=== PATIENT | female | born 1970 | race Hispanic/Latino ===

== ENCOUNTER 2021-05-22 13:37 | Emergency (ER) | payer OTHER ==
--- OUTSIDE RECORDS SUMMARY | 2021-05-22 13:41 | XMS REPORT | Continuity of Care Document ---
:1970 Author Organization [facility] t Address [address] [place] [address] Care Team Providers Name Role Phone Lab, Fam Pob I Attending Clinician Unavailable Payers Payer Name Policy Type Policy Number Effective Date Expiration Date S ource Problems This patient has no known problems. Allergies, Adverse Reactions, Alerts This patient has no known allergies or adverse reactions. Medications This patient has no known medications. Procedures This patient has no known procedures. Encounters Start End Encounter Admission Attending Care Care Encounter Source Date/Time Date/Time Type Type Clinicians Facility Department ID 2020-06-03 2020-06-03 Laboratory Lab, [facility] [id number] 08:15:11 08:35:11 Only Fam Pob I [facility] [id number] [place] [id number] [facility] [id number] [facility] [address] Results This patient has no known results.
[2021-05-22 15:06] LABS: Urine Blood Negative (Negative); Urine Glucose Trace (Negative); Urine Protein 1+ (Negative); Urine Specific Gravity >=1.030 (1.005-1.030)
[2021-05-22 15:13] LABS: Absolute Lymphocytes (CBC) 2.6 K/uL (0.7-4.9); Basophils % 0.3 % (0-1.3); Hematocrit 45.7 % (36.0-45.0); Lymphocytes % 18.5 % (15.3-44.8); MPV 8.5 fL (7.6-11.3); RBC Red Blood Cell Count 5.29 M/uL (3.86-4.86)
[2021-05-22 15:27] LABS: Potassium 3.6 mmol/L (3.5-5.1)
[2021-05-22] MEDS ORDERED: NA CHLORIDE 0.9% 1,000 ML ONE (15:31)
[2021-05-22] MEDS ORDERED: ONDANSETRON 4 MG/2 ML VIAL ONE (15:31)
--- NOTE | 2021-05-22 15:36 | RAD REPORT ---
EXAM DESCRIPTION: CT - CTFBWCON CLINICAL HISTORY: FACIAL PAIN COMPARISON: HEAD BRAIN W O CONTRAST dated 07/30/2011 TECHNIQUE: Axial 2 mm thick images of the face were obtained with sagittal and coronal reconstructio n images. All CT scans are performed using dose optimization technique as appropriate and may include automated exposure control or mA/KV adjustment according to patient size. FINDINGS: Enhancement and edema of the buccal mucosa and overlying soft tissues of the face on the r ight side.The source of infection is likely a right mandibular molar, either the second or third mola r. There is a small fluid collection along the mandible at this location measuring 8 millimeters in l ramonita axis. No parotid or submandibular lesions. No suspicious thyroid nodules. IMPRESSION: Small odontogenic abscess associated with a right mandibular molar, either the second or third, with overlying cellulitis.
[2021-05-22] MEDS ORDERED: CLINDAMYCIN 600MG/D5W 600 MG/50 ML BAG IV ONE (16:46)
--- NOTE | 2021-05-24 16:37 | EDPHYS ---
Physician Documentation [facility] Name: Angélica Thomas Age: 51 yrs Sex: Female : 1970 Arrival Date: 05/22/2021 Time: 13:40 Bed 17 Private MD: Zelalem Lebron ED Physician Jeff Leong HPI: 05/22 16:29 This 51 yrs old Female presents to ER via Ambulatory with complaints of Facial kb Swelling - jaw, Vomiting, Decreased Appetite. 16:29 The patient presents with pain, redness, swelling. The problem is located in the right kb jaw. Onset: The symptoms/episode began/occurred this morning. Duration: The symptoms are continuous. Modifying factors: The symptoms are alleviated by nothing, the symptoms are aggravated by nothing. Associated signs and symptoms: Pertinent positives: nausea, pain, swelling, vomiting, Pertinent negatives: anorexia, chills, dysphagia, fever, inability to eat, redness in area. Severity of symptoms: At their worst the symptoms were moderate, in the emergency department the symptoms are unchanged. The patient has not experienced similar symptoms in the past. The patient has not recently seen a physician. Patient reports she had a tooth abscess to right lower jaw area a few weeks ago took clindamycin and it seemed to clear up. Has follow-up appointment with dentist tomorrow but woke up this morning with swelling again to right lower jaw. Reports nausea and vomiting since last night unable to tolerate p.o. intake. Historical: - Allergies: 14:09 No Known Allergies; ss - Immunization history:: Adult Immunizations up to date. - Social history:: Smoking status: Patient denies any tobacco usage or history of. ROS: 16:27 Constitutional: Negative for fever, chills, and weight loss. kb 16:27 ENT: Positive for dental pain. 16:27 Abdomen/GI: Positive for nausea and vomiting, Negative for abdominal pain, diarrhea. 16:27 All other systems are negative. Exam: 16:27 Constitutional: This is a well developed, well nourished patient who is awake, alert, kb and in no acute distress. Head/Face: Normocephalic, atraumatic. Respiratory: Respirations even and unlabored. No increased work of breathing, no retractions or nasal flaring. Abdomen/GI: Soft, non-tender. No distention Skin: Warm, dry with normal turgor. Normal color. MS/ Extremity: Pulses equal, no cyanosis. Neurovascular intact. Full, normal range of motion. Neuro: Awake and alert, GCS 15, oriented to person, place, time, and situation. Moves all extremities. Normal gait. Psych: Awake, alert, with orientation to person, place and time. Behavior, mood, and affect are within normal limits. 16:27 ENT: Dental exam: pain, swelling to right lower jaw. Vital Signs: 14:08 Resp 16; Temp 98.3(O); Weight 68.04 kg; Height 5 ft. 0 in. (152.40 cm); Pain 8/10; ss 14:10 BP 157 / 96; Pulse 104; Pulse Ox 99% ; ss 15:30 BP 149 / 89; Pulse 80; Resp 16; Pulse Ox 100% ; bp 16:30 BP 157 / 91; Pulse 76; Resp 18; Temp 98.5; Pulse Ox 99% ; bp 14:08 Body Mass Index 29.29 (68.04 kg, 152.40 cm) ss MDM: 14:24 Patient medically screened. kb 16:12 Data reviewed: vital signs, nurses notes. Data interpreted: Pulse oximetry: on room air kb is 100 %. Interpretation: normal. Counseling: I had a detailed discussion with the patient and/or guardian regarding: the historical points, exam findings, and any diagnostic results supporting the discharge/admit diagnosis, lab results, radiology results, the need for outpatient follow up, a dentist, to return to the emergency department if symptoms worsen or persist or if there are any questions or concerns that arise at home. 16:26 ED course: Appointment with dentist tomorrow. kb 05/22 14:23 Order name: CBC with Diff; Complete Time: 15:21 kb 05/22 14:23 Order name: Basic Metabolic Panel; Complete Time: 15:28 kb 05/22 15:06 Order name: Urine Dipstick-Ancillary; Complete Time: 15:12 EDNJ 05/22 15:15 Order name: Urine --Ancillary (enter results) eb 05/22 15:15 Order name: Urine --Ancillary EDNJ 05/22 15:18 Order name: Glucose, Ancillary Testing; Complete Time: 15:21 EDNJ 05/22 14:23 Order name: IV Start; Complete Time: 14:55 kb 05/22 14:32 Order name: CT Facial Bones W/ Con \T\ Mpr; Complete Time: 15:53 kb 05/22 14:32 Order name: Blood Glucose Level; Complete Time: 15:53 kb 05/22 15:54 Order name: PO challenge; Complete Time: 16:21 kb Administered Medications: 14:45 Drug: Zofran (Ondansetron) 4 mg Route: IVP; Site: right antecubital; bp 16:21 Follow up: Response: No adverse reaction bp 15:12 Drug: NS 0.9% 1000 ml Route: IV; Rate: 1000 ml; Site: right antecubital; bp 16:58 Follow up: IV Status: Completed infusion; IV Intake: 1000ml bp 16:15 CANCELLED (Other Intervention Used): Augmentin (Amoxicillin-Clavulanate) 875 mg PO once kb 16:30 Drug: Clindamycin 600 mg Route: IVPB; Infused Over: 30 mins; Site: right antecubital; bp 16:58 Follow up: IV Status: Completed infusion; IV Intake: 50ml bp Disposition: 17:14 Co-signature as Attending Physician, Jeff Leong MD. ma2 Disposition Summary: 05/22/21 16:15 Discharge Ordered Location: Home kb Condition: Stable kb Diagnosis - Periapical abscess without sinus kb Followup: kb - With: Private Physician - When: 2 - 3 days - Reason: Recheck today's complaints, Continuance of care, Re-evaluation by your physician Followup: kb - With: Emergency Department - When: As needed - Reason: Worsening of condition Discharge Instructions: - Discharge Summary Sheet kb - Dental Pain, [id number]-[id number] kb - Dental Abscess, [id number] kb Forms: - Medication Reconciliation Form kb - Thank You Letter kb - Antibiotic Education kb - Prescription Opioid Use kb - Work release form bp Prescriptions: - Clindamycin HCl 300 mg Oral Capsule - take 1 capsule by ORAL route every 6 hours for 10 days; 40 capsule; Refills: 0, kb Product Selection Permitted - Ibuprofen 600 mg Oral Tablet - take 1 tablet by ORAL route every 6 hours As needed take with food; 30 tablet; kb Refills: 0, Product Selection Permitted Signatures: Dispatcher [employer] Elvia Jones, ROE-C Chanda Palafox RN RN ss Harrison Mcclure RN RN bp Jeff Leong MD MD ma2 Corrections: (The following items were deleted from the chart) 16:15 15:54 Augmentin (Amoxicillin-Clavulanate) 875 mg PO once ordered. kb kb 16:29 16:27 ENT: Dental exam: cellulitis, pain, kb kb
--- NOTE | 2021-05-24 16:37 | ER ---
Nurse's Notes [facility] Name: Angélica Thomas Age: 51 yrs Sex: Female : 1970 Arrival Date: 05/22/2021 Time: 13:40 Bed 17 Private MD: Zelalem Lebron Diagnosis: Periapical abscess without sinus Presentation: 05/22 14:08 Chief complaint: Patient states: Swelling to R lower jaw that began over night. Pt also ss reports N/V. Coronavirus screen: Client denies travel out of the [place] in the last 14 days. Ebola Screen: Patient denies exposure to infectious person. Patient denies travel to an Ebola-affected area in the 21 days before illness onset. Initial Sepsis Screen: Does the patient meet any 2 criteria? No. Patient's initial sepsis screen is negative. Does the patient have a suspected source of infection? No. Patient's initial sepsis screen is negative. Risk Assessment: Do you want to hurt yourself or someone else? Patient reports no desire to harm self or others. Onset of symptoms was May 22, 2021. 14:08 Method Of Arrival: Ambulatory ss 14:08 Acuity: DOUGLAS 3 ss Triage Assessment: 14:10 General: Appears distressed, uncomfortable, Behavior is cooperative, appropriate for bp age, anxious. Pain: Complains of pain in face. EENT: MANDIBULAR INFLAMMATION NOTED. Neuro: No deficits noted. Cardiovascular: No deficits noted. Respiratory: No deficits noted. GI: Reports nausea, vomiting. : No signs and/or symptoms were reported regarding the genitourinary system. Derm: No deficits noted. Musculoskeletal: No deficits noted. Historical: - Allergies: 14:09 No Known Allergies; ss - Immunization history:: Adult Immunizations up to date. - Social history:: Smoking status: Patient denies any tobacco usage or history of. Screenin:30 Abuse screen: Denies threats or abuse. Denies injuries from another. Nutritional bp screening: No deficits noted. Tuberculosis screening: No symptoms or risk factors identified. Fall Risk None identified. Assessment: 15:30 Reassessment: PT RETURNED FROM [facility]. bp 16:58 Reassessment: PT D/C HOME AMBULATORY WITH FAMILY, DX WITH DENTAL ABSCESS. bp Vital Signs: 14:08 Resp 16; Temp 98.3(O); Weight 68.04 kg; Height 5 ft. 0 in. (152.40 cm); Pain 8/10; ss 14:10 BP 157 / 96; Pulse 104; Pulse Ox 99% ; ss 15:30 BP 149 / 89; Pulse 80; Resp 16; Pulse Ox 100% ; bp 16:30 BP 157 / 91; Pulse 76; Resp 18; Temp 98.5; Pulse Ox 99% ; bp 14:08 Body Mass Index 29.29 (68.04 kg, 152.40 cm) ED Course: 13:40 Patient arrived in ED. am2 13:41 Zelalem Lebron MD is Private Physician. am2 14:09 Triage completed. ss 14:09 Arm band placed on right wrist. ss 14:23 Elvia Torrez FNP-C is [facility]. kb 14:23 Jeff Leong MD is Attending Physician. kb 14:27 Harrison Mcclure, CLOVER is Primary Nurse. bp 14:57 Inserted saline lock: 20 gauge in right antecubital area, using aseptic technique. bp Blood collected. 15:17 CT Facial Bones W/ Con \T\ Mpr In Process Unspecified. EDMS 15:38 Urine --Ancillary (enter results) Sent. mh5 15:38 Urine --Ancillary Sent. mh5 16:30 Patient has correct armband on for positive identification. Bed in low position. Call bp light in reach. Side rails up X2. Adult w/ patient. 16:58 No provider procedures requiring assistance completed. IV discontinued, intact, bp bleeding controlled, No redness/swelling at site. Pressure dressing applied. Administered Medications: 14:45 Drug: Zofran (Ondansetron) 4 mg Route: IVP; Site: right antecubital; bp 16:21 Follow up: Response: No adverse reaction bp 15:12 Drug: NS 0.9% 1000 ml Route: IV; Rate: 1000 ml; Site: right antecubital; bp 16:58 Follow up: IV Status: Completed infusion; IV Intake: 1000ml bp 16:15 CANCELLED (Other Intervention Used): Augmentin (Amoxicillin-Clavulanate) 875 mg PO once kb 16:30 Drug: Clindamycin 600 mg Route: IVPB; Infused Over: 30 mins; Site: right antecubital; bp 16:58 Follow up: IV Status: Completed infusion; IV Intake: 50ml bp Intake: 16:58 IV: 50ml; Total: 50ml. bp 16:58 IV: 1000ml; Total: 1050ml. bp Outcome: 16:15 Discharge ordered by . gustavo 16:30 Discharged to home ambulatory. bp 16:30 Condition: stable 16:30 Discharge instructions given to patient, Instructed on discharge instructions, follow up and referral plans. medication usage, Demonstrated understanding of instructions, follow-up care, medications, Prescriptions given X 2. 17:01 Patient left the ED. bp Signatures: Dispatcher [employer] EDMS Elvia Torrez, GRANITE POLISHER MACHINE-C GRANITE POLISHER MACHINE-Chanda Acosta, RN RN Cynthia Quinteros [facility] Shelly Galeana formerly [facility] Harrison Mcclure, RN RN bp
[2021-05-24 20:49] VITALS: BP 157/91; TEMP 98.5; O2SAT 99
== END 2021-05-22 17:01 | disposition home or self-care (01) ==
LOC: ER 13:37
DX: K04.7 Periapical abscess without sinus (principal)
CPT/HCPCS: 96365; 96361; 85025; 80048; 36415; 81025; 82565; 82947; 81003; 70487; 76377; 96375; 99284; Q9967; J7030; J2405

== ENCOUNTER 2023-09-25 15:27 | Observation (INO) | payer OTHER ==
--- OUTSIDE RECORDS SUMMARY | 2023-09-25 15:30 | XMS REPORT | Continuity of Care Document ---
:1970 Author Organization [facility] t Address [address] [place] [address] [place] [id number] Care Team Providers Name Role Phone JASPAL ELDER Attending Clinician Unavailable Referred, Self Attending Clinician Unavailable Alley Luna Attending Clinician Unavailable Lab, Adc Fam Pob I Attending Clinician Unavailable Venecia Alvarenga Attending Clinician VENECIA GONSALVES Attending Clinician Unavailable RENETTA GASTELUM Admitting Clinician Unavailable Alley Luna Admitting Clinician Unavailable Payers Payer Name Policy Type Policy Number Effective Date Expiration Date [place] [address] [id number] 2023 00:00:00 [facility] [id number] 2018 00:00:00 Problems Condition Condition Condition Status Onset Resolution Last Treating Co mments Source Name Details Category Date Date Treatment Clinician Date Diabetes Diabetes Disease Active Kelse y 05-25 Seybold 00:00: - 00 Externa l Hypertensi Hypertensi Disease Active K elsey on on 05-25 Seybold 00:00: - 00 Externa l Thyroid Thyroid Disease Active Aileen disease disease 05-25 Seybold 00:00: - 00 Externa l Obesity Obesity Disease Active Aileen 05-25 Seybold 00:00: - 00 Externa l Hypothyroi Hypothyroi Disease Active K elseannia dism dism 05-25 Seybold (acquired) (acquired) 00:00: - 00 Externa l History of History of Disease Active K elsey retinal retinal 05-25 Seybold detachment detachment 00:00: - 00 Externa l Allergies, Adverse Reactions, Alerts Allergy Allergy Status Severity Reaction(s) Onset Inactive Treating Comm ents Source Name Type Date Date Clinician NO KNOWN Drug Active Univers ALLERGIE Class ity of [facility] Social History Social Habit Start Date Stop Date Quantity Comments Source Gender identity Aileen ybold - External Sexual orientation Aileen Sandraybold - External Exposure to Not sure University SARS-CoV-2 (event) [facility] Alcohol intake 2023-05-25 2023-05-25 Current drinker Alfonzose annia Ritterold - 00:00:00 00:00:00 of alcohol External (finding) Education 2023-05-25 2023-05-25 13 Aileen ybold - 00:00:00 00:00:00 External Alcohol Comment 2023-05-25 2023-05-25 rarely Aileen ybold - 00:00:00 00:00:00 External Tobacco use and 2023-05-23 2023-05-23 Smokeless Aileen Se ybold - exposure 00:00:00 00:00:00 tobacco non-user External History of Social 2023-05-23 2023-05-23 Aileen ybold - function 00:00:00 00:00:00 External Sex [birth year] Aileen ybold - 00:00:00 00:00:00 External Smoking Status Start Date Stop Date Source Unknown if ever smoked Universit y [facility] Never smoked tobacco Aileen Seyb old - External Medications Ordered Filled Start Stop Current Ordering Indication Dosage Frequency Signature Comments Components Source Medication Medication Date Date Medication? Clinician (SIG) Name Name Semaglutide 2022- 1mg Inject 1 K elsey (1 mg/dose) 05-25 mg into Seyb old 2 mg/1.5 mL 13:52: 00:00 the skin - SQ Solution 00 :00 once a Insurance Operations Rep a Pen-Injecto week l r OZEMPIC (0 Yes [id number] 1mg Inject 1 Aileen mg/dose) 4 7-28 mg into Seybol d mg/3 mL SQ 00:00: the skin - Solution 00 once a Externa Pen-Injecto week l r Lisinopril Yes 20mg Take 1 Kelse y 20 MG oral 7-26 tablet (20 Sey bold Tablet 11:07: mg total) - 27 by mouth Externa daily l Levothyroxi Yes 112ug Take 1 Alfonzo sey ne Sodium 7-26 tablet Seybold 112 MCG 11:07: (112 mcg - oral Tablet 16 total) by Ext casimiro mouth l daily Amlodipine Yes 10mg Take 1 Kelse y Besylate 10 7-26 tablet (10 Se ybold MG oral 11:07: mg total) - Tablet 03 by mouth Externa daily l Vital Signs Vital Name Observation Time Observation Value Comments Source Systolic blood 2023-05-25 18:42:00 120 mm[Hg] Aileen Ritterold - pressure External Diastolic blood 2023-05-25 18:42:00 78 mm[Hg] Katy milner Seybold - pressure External Heart rate 2023-05-25 18:42:00 80 /min Aileen bronson - External Body temperature 2023-05-25 18:42:00 37.06 Kristina Meri Christensen - External Respiratory rate 2023-05-25 18:42:00 15 /min Meri Christensen - External Body height 2023-05-25 18:42:00 152.4 cm Aileen bronson - External Body weight 2023-05-25 18:42:00 72.122 kg Aileen bronson - External BMI 2023-05-25 18:42:00 31.05 kg/m2 Aileen bronson - External Oxygen saturation in 2023-05-25 18:42:00 98 /min Aileen Christensen - Arterial blood by External Pulse oximetry Procedures This patient has no known procedures. Encounters Start End Encounter Admission Attending Care Care Encounter Source Date/Time Date/Time Type Type Clinicians Facility Department ID 2023-09-25 2023-09-25 Outpatient AILEEN ELDER [id number] Aileen 15:30:00 15:30:00 JASPAL Seybol d 2023-09-25 2023-09-25 Outpatient PREZAS, AILEEN PORTILLO [id number] Aileen 00:00:00 00:00:00 JASPAL Seybol d 2023-05-25 2023-05-25 Outpatient PREZAColleen AILEEN PORTILLO [id number] Aileen 13:30:00 13:30:00 JASPAL Seybol d 2023-05-25 2023-05-25 Outpatient PREZAS, AILEEN PORTILLO [id number] Aileen 00:00:00 00:00:00 JASPAL Seybol d 2021-08-19 2021-08-19 Outpatient EL Referred, [facility] ABISAI [id number] [facility] 12:00:00 12:00:00 Self 04 [facility] [place] 2021-01-15 2021-01-15 Outpatient [facility] [id number] Univers 14:50:00 14:50:00 ity [facility] 2020-12-25 2020-12-25 Outpatient [facility] [id number] Univers 14:55:00 14:55:00 ity [facility] 2020-08-09 2020-08-09 Outpatient EL Holste, [facility] ABISAI [id number] [facility] 12:00:00 12:00:00 Alley [facility] 2020-06-03 2020-06-03 Laboratory Lab, [facility] [id number] 08:15:11 08:35:11 Only Fam Pob I Health [id number] [place] [id number] Professio [phone] [address] One 2020-06-03 2020-06-03 Laboratory Lab, [facility] Fam Pob I [facility] [id number] Univers 08:15:11 08:35:11 Only Venecia Gonsalves Health [id number] ity [facility] [id number] Ran as Professio [phone] Me dical [address] 2020-06-03 2020-06-03 Outpatient R ANA ROSA [facility] [id number] Univers 08:20:00 08:20:00 VENECIA [facility] Results This patient has no known results. History and Physical Notes Date/Time Note Provider Source 2023-05-25 13:48:43 [id number] of [facility] this note is different from the original.Chief Complaint ?Establish care ?History of Present Illness ?Bill Thomas is a(n) 53 year old female with a past medical history as documented below who presents today for evaluation of No chief complaint on file..Prior PCP:Dr. Lucero. Last seen for PCP has been years. DM: Seen Dr. Rodriguez with Endocrinology. Managed and monitor by Dr. Rodriguez. HTN: Stable with medication. Hypothyroidism: Stable with medication. Family history of ovarian cancer. Last [employer] appt: August 2022. [facility]. Seen yearly. COVID: 5 shots, UTDTDAP: NUTDPneumovax: UTDShingles: 1/2. Will get shot at pharmacy[facility] Management[facility] screen: UTDPAP: UTDMammogram: UTD??General: Alert, Conversant, cooperative, oriented x3.HEENT: Head atraumatic. Extraocular movements intact. Ears atraumatic. Nares patent. Oropharynx moist. Dentition appears normal. Neck: Supple. No thyromegaly.Heart: Regular rate and rhythm. No murmurs.Lungs: Clear to auscultation bilateral.Abdomen: Soft, nontender, nondistended. Extremities: Good range of motion to all extremities. No focal deficits.Skin: Normal skin turgor. Skin appears dry. No significant edema.Neuro: No focal deficits. Cranial nerves II-XII intact.Mental: Patient appears in good mood. Intact judgement and insight. Patient interactive and appropriate.?Labs/Radiology ?Done with Endocrinology. ?Assessment and Plan ?DM Type 2HTNHypothyroidismObesityDM: Medication updated. Monitored and managed by endocrinology-Dr. Lebron. We will obtain recent lab work and note. Recommend to decrease carbohydrate intake to less than 45 g per meal. Recommend to check blood sugars at least twice daily. Recommend to maintain blood sugars less than 140 fasting and less than 200 after meals. If blood sugar remains above 200 further adjustment in medication may be required.HTN: Medication reviewed and updated recommend to check blood pressure daily as needed. Recommend to maintain blood pressure less than 130/80. If blood pressure remains above 140/90 consistently, additional medication and/or further adjustment in medication may be required. Hold blood pressure medication if blood pressure systolic less than 110.Hypothyroidism: Monitored and managed by Dr. Lebron. Continue with medicationObesity: BMI 31. Continue diet lifestyle modification.Vaccine: Patient to receive DTaP vaccine. ?Questions answered. Instructions/handouts given. Risks and benefits of any prescription medicines, including any side effects, addressed in detail with the patient. Patient understands and agrees with plan of care. ?Follow-Up ?One year?[place] [id number] and physical [id number]:43:09History and physical [id number] for patient [facility] [facility] [id number]"
[2023-09-25] MEDS ORDERED: NA CHLORIDE 0.9% 2,000 ML ONE (16:02)
[2023-09-25] MEDS ORDERED: TENECTEPLASE 50 MG/10 ML VIAL IV ONE (16:02)
--- NOTE | 2023-09-25 16:02 | RAD REPORT ---
EXAM DESCRIPTION: CT - Ct Stroke Brain Wo Cont - 09/25/2023 3:55 pm CLINICAL HISTORY: STROKE ALERT Headache, drowsiness, CVA symptomology COMPARISON: <Comparisons> TECHNIQUE: All CT scans are performed using dose optimization technique as appropriate and may inclu de automated exposure control or mA/KV adjustment according to patient size. FINDINGS: No intracranial hemorrhage, hydrocephalus or extra-axial fluid collection.No areas of brai n edema or evidence of midline shift. The paranasal sinuses and mastoids are clear. The calvarium is intact. IMPRESSION: No acute intracranial abnormality. The findings were discussed with Dr. Cartagena in the ER On 09/25/2023 at 3:58 p.m. by telephone.
[2023-09-25] MEDS ORDERED: FOLIC ACID 5 MG/ML VIAL ONE (16:03)
[2023-09-25 16:13] LABS: Absolute Lymphocytes (CBC) 1.7 K/uL (0.7-4.9); Hematocrit 43.7 % (36.0-45.0); Lymphocytes % 33.8 % (15.3-44.8); MCV 88.9 fL (80-100); MPV 8.6 fL (7.6-11.3); Platelets 270 thou/uL (152-406); RBC Red Blood Cell Count 4.91 M/uL (3.86-4.86)
[2023-09-25 16:31] LABS: Potassium 3.5 mEq/L (3.5-5.1); Troponin High Sensitivity 4.8 pg/mL (<58.9)
--- NOTE | 2023-09-25 16:32 | RAD REPORT ---
EXAM DESCRIPTION: RAD - Chest Single View - 09/25/2023 4:23 pm CLINICAL HISTORY: stroke Chest pain. COMPARISON: <Comparisons> FINDINGS: Portable technique limits examination quality. The lungs are grossly clear. The heart is normal in size. No displaced fractures. IMPRESSION: No acute intrathoracic process suspected.
--- NOTE | 2023-09-25 16:37 | EDPHYS ---
Physician Documentation [facility] Name: Angélica Thomas Age: 53 yrs Sex: Female : 1970 Arrival Date: 09/25/2023 Time: 15:27 Bed 5 Private MD: WEN Physician Leo Cartagena HPI: 09/25 16:11 This 53 yrs old Female presents to ER via Wheelchair with complaints of S/S of sandy Possible Stroke. 16:11 The patient's problem is reported as a facial droop, on right, paresthesias, in right sandy side of face, dysphasia, slow speech, expressive aphasia, weakness, in the right upper extremity, in the right side of face. Onset: The symptoms/episode began/occurred 11 a,, matthias , maybe a few before or after. Duration: The episode is continuous. Context: the episode(s) was witnessed, by co-worker(s), symptoms became apparent at 11:00. The symptoms are alleviated by nothing. The symptoms are aggravated by nothing. Associated signs and symptoms: The patient has no apparent associated signs or symptoms. Patient's baseline: Neuro:. The patient has not experienced similar symptoms in the past. Historical: - Allergies: 15:39 Codeine; iw - PMHx: 15:39 diabetes mellitus; Hypertensive disorder; Hypothyroidism; iw - PSHx: 15:39 cyst removal from hand; Ligation of fallopian tube; iw - Immunization history:: Adult Immunizations unknown. - Family history:: not pertinent. - Social history:: Smoking status: Patient denies any tobacco usage or history of. ROS: 16:11 Constitutional: Negative for fever, chills, and weight loss, Eyes: Negative for injury, sandy pain, redness, and discharge, ENT: Negative for injury, pain, and discharge, Neck: Negative for injury, pain, and swelling, Cardiovascular: Negative for chest pain, palpitations, and edema, Respiratory: Negative for shortness of breath, cough, wheezing, and pleuritic chest pain, Abdomen/GI: Negative for abdominal pain, nausea, vomiting, diarrhea, and constipation, Back: Negative for injury and pain, : Negative for injury, bleeding, discharge, and swelling, MS/Extremity: Negative for injury and deformity, Skin: Negative for injury, rash, and discoloration, Psych: Negative for depression, anxiety, suicide ideation, homicidal ideation, and hallucinations, Allergy/Immunology: Negative for hives, rash, and allergies, Endocrine: Negative for neck swelling, polydipsia, polyuria, polyphagia, and marked weight changes, Hematologic/Lymphatic: Negative for swollen nodes, abnormal bleeding, and unusual bruising, 16:11 Neuro: Positive for numbness, weakness, of the face and right arm, Exam: 16:11 Constitutional: This is a well developed, well nourished patient who is awake, alert, sandy and in no acute distress. Head/Face: Normocephalic, atraumatic. Eyes: Pupils equal round and reactive to light, extra-ocular motions intact. Lids and lashes normal. Conjunctiva and sclera are non-icteric and not injected. Cornea within normal limits. Periorbital areas with no swelling, redness, or edema. ENT: Nares patent. No nasal discharge, no septal abnormalities noted. Tympanic membranes are normal and external auditory canals are clear. Oropharynx with no redness, swelling, or masses, exudates, or evidence of obstruction, uvula midline. Mucous membranes moist. Neck: Trachea midline, no thyromegaly or masses palpated, and no cervical lymphadenopathy. Supple, full range of motion without nuchal rigidity, or vertebral point tenderness. No Meningismus. Chest/axilla: Normal chest wall appearance and motion. Nontender with no deformity. No lesions are appreciated. Cardiovascular: Regular rate and rhythm with a normal S1 and S2. No gallops, murmurs, or rubs. Normal PMI, no JVD. No pulse deficits. Respiratory: Lungs have equal breath sounds bilaterally, clear to auscultation and percussion. No rales, rhonchi or wheezes noted. No increased work of breathing, no retractions or nasal flaring. Abdomen/GI: Soft, non-tender, with normal bowel sounds. No distension or tympany. No guarding or rebound. No evidence of tenderness throughout. Back: No spinal tenderness. No costovertebral tenderness. Full range of motion. Skin: Warm, dry with normal turgor. Normal color with no rashes, no lesions, and no evidence of cellulitis. MS/ Extremity: Pulses equal, no cyanosis. Neurovascular intact. Full, normal range of motion. Neuro: Awake and alert, GCS 15, oriented to person, place, time, and situation. Cranial nerves II-XII grossly intact. Motor strength 5/5 in all extremities. Sensory grossly intact. Cerebellar exam normal. Normal gait. Psych: Awake, alert, with orientation to person, place and time. Behavior, mood, and affect are within normal limits. 16:11 ECG was reviewed by the Attending Physician. 16:11 Neuro: Orientation: is normal, appropriate for stated age, no acute changes, Mentation: is normal, appropriate for stated age, no acute changes, Memory: is normal, appropriate for stated age, no acute changes, Cranial nerves: facial droop noted on right, with forehead spared. Motor: is normal, Sensation: is normal, no obvious gross deficits, Gait: not tested. 16:25 Radiologist reports: neg for acute sandy Vital Signs: 16:00 BP 178 / 107; iw 16:02 BP 159 / 93; Pulse 88; Resp 16; Temp 97.9(O); Pulse Ox 100% on R/A; Weight 68.49 kg; db 16:05 BP 179 / 94; Pulse 88; Resp 16; Pulse Ox 100% on R/A; db 16:06 BP 167 / 84; iw 16:18 BP 146 / 101; Pulse 86; Resp 18; Pulse Ox 100% on R/A; db 17:05 BP 167 / 100; Pulse 98; Resp 18; Pulse Ox 100% on R/A; db 17:15 BP 156 / 87; Pulse 87; Resp 18; Pulse Ox 100% on R/A; db 17:30 BP 115 / 102; Pulse 85; db 17:45 BP 137 / 94; Pulse 78; Resp 16; Pulse Ox 100% on R/A; db 18:00 BP 155 / 105; Pulse 78; Resp 16; Pulse Ox 99% on R/A; db 18:30 BP 163 / 92; Pulse 77; Resp 18; Pulse Ox 97% on R/A; db 19:00 BP 138 / 87; Pulse 81; Resp 18; Pulse Ox 98% ; vc1 20:00 BP 127 / 93; Pulse 73; Resp 18; Pulse Ox 98% ; vc1 21:00 BP 137 / 82; Pulse 78; Resp 19; Pulse Ox 98% ; vc1 22:00 BP 126 / 81; Pulse 76; Resp 13; Pulse Ox 97% ; vc1 23:00 BP 130 / 76; Pulse 75; Resp 14; Pulse Ox 96% ; vc1 23:45 BP 125 / 77; Pulse 74; Resp 12; Pulse Ox 97% ; vc1 NIH Stroke Scale Scores: 16:11 NIHSS Score: 4 sandy 16:15 NIHSS Score: 3 db MDM: 15:32 Patient medically screened. sandy 16:26 Differential diagnosis: CVA, TIA. Data reviewed: vital signs, nurses notes, lab test sandy result(s), EKG, radiologic studies, CT scan, MRI, plain films. Consideration of Admission/Observation Escalation of care including admission/observation considered. I considered the following discharge prescriptions or medication management in the emergency department Medications were administered in the Emergency Department. See MAR. Independent interpretation of the following test(s) in the Emergency Department EKG: See my EKG interpretation above. Historians other than the Patient: Family Member: friend and later well informed. ED course: dr edmonds , ct neg , window unclear, dw family, will tnk , pt and family understand and accept all risk. 09/25 15:33 Order name: Basic Metabolic Panel; Complete Time: 16:39 ms3 09/25 15:33 Order name: CBC with Diff; Complete Time: 16:39 ms3 09/25 15:33 Order name: High Sensitivity Troponin; Complete Time: 16:39 ms3 09/25 15:33 Order name: Protime (+inr); Complete Time: 17:53 ms3 09/25 15:33 Order name: Ptt, Activated; Complete Time: 17:53 ms3 09/25 15:42 Order name: Urinalysis w/ reflexes; Complete Time: 17:53 [facility] 09/25 16:00 Order name: Glucose, Ancillary Testing; Complete Time: 16:06 [facility] 09/25 17:56 Order name: Anti-Thrombin III Activity EDWA 09/25 17:56 Order name: C-ANCA Anti-Proteinase 3 EDWA 09/25 17:56 Order name: Cardiolipin Antibodies G,M EDWA 09/25 17:56 Order name: Factor V Leiden Mutation EDWA 09/25 17:56 Order name: Homocysteine EDWA 09/25 17:56 Order name: Miscellaneous Test Lab [facility] 09/25 17:56 Order name: P-ANCA Anti-Myeloperoxidase Ab [facility] 09/25 17:56 Order name: Protein C Antigen EDWA 09/25 17:56 Order name: Protein Electo w/M Freddie Serum EDMS 09/25 17:56 Order name: Protein S (Total EDMS 09/25 17:56 Order name: PROTHROMBIN GENE ANALYSIS (F2) EDMS 09/25 17:56 Order name: RPR EDMS 09/25 17:56 Order name: Vitamin B12 Level EDMS 09/25 17:56 Order name: Vitamin D, 25 (OH), TOTAL EDMS 09/25 17:56 Order name: Basic Metabolic Panel EDMS 09/25 17:56 Order name: Basic Metabolic Panel EDMS 09/25 17:56 Order name: Basic Metabolic Panel EDMS 09/25 17:56 Order name: Basic Metabolic Panel EDMS 09/25 17:56 Order name: Basic Metabolic Panel EDMS 09/25 17:56 Order name: Basic Metabolic Panel EDMS 09/25 17:56 Order name: C-Reactive Protein EDMS 09/25 17:56 Order name: C-Reactive Protein EDMS 09/25 17:56 Order name: CBC with Automated Diff EDMS 09/25 17:56 Order name: CBC with Automated Diff EDMS 09/25 17:56 Order name: CBC with Automated Diff EDMS 09/25 17:56 Order name: CBC with Automated Diff EDMS 09/25 17:56 Order name: CBC with Automated Diff EDMS 09/25 17:56 Order name: CBC with Automated Diff EDMS 09/25 17:56 Order name: Creatine Phosphokinase EDMS 09/25 17:56 Order name: Creatine Phosphokinase EDMS 09/25 17:56 Order name: Creatine Phosphokinase EDMS 09/25 17:56 Order name: Creatine Phosphokinase EDMS 09/25 17:56 Order name: Lipid Profile EDMS 09/25 17:56 Order name: Lipid Profile EDMS 09/25 17:56 Order name: Liver (Hepatic) Function EDMS 09/25 17:56 Order name: Liver (Hepatic) Function EDMS 09/25 17:56 Order name: Magnesium EDMS 09/25 17:56 Order name: Magnesium EDMS 09/25 17:56 Order name: Magnesium EDMS 09/25 17:56 Order name: Magnesium EDMS 09/25 17:56 Order name: Magnesium EDMS 09/25 17:56 Order name: Magnesium EDMS 09/25 17:56 Order name: Phosphorus EDMS 09/25 17:56 Order name: Phosphorus EDMS 09/25 17:56 Order name: Phosphorus EDMS 09/25 17:56 Order name: Phosphorus EDMS 09/25 17:56 Order name: Phosphorus EDMS 09/25 17:56 Order name: Phosphorus EDMS 09/25 17:56 Order name: Protein, Total EDMS 09/25 17:56 Order name: Protein, Total EDMS 09/25 17:56 Order name: T4,Total EDMS 09/25 17:56 Order name: T4,Total EDMS 09/25 17:56 Order name: Thyroid Stimulating Hormone EDMS 09/25 17:56 Order name: Thyroid Stimulating Hormone EDMS 09/25 17:57 Order name: Troponin High Sensitivity EDMS 09/25 17:57 Order name: Troponin High Sensitivity EDMS 09/25 17:57 Order name: Troponin High Sensitivity EDMS 09/25 15:33 Order name: CT Stroke Brain w/o Contrast; Complete Time: 16:06 ms3 09/25 15:33 Order name: Stroke CXR 1 View; Complete Time: 16:39 ms3 09/25 15:40 Order name: CT Head Angio; Complete Time: 17:53 sandy 09/25 15:40 Order name: CT Neck Angio; Complete Time: 17:53 sandy 09/25 16:26 Order name: Brain Wo Cont; Complete Time: 17:53 EDWA 09/25 17:56 Order name: Echo with Doppler EDWA 09/25 15:33 Order name: EKG; Complete Time: 15:34 ms3 09/25 17:56 Order name: IRF Screen EDWA 09/25 17:56 Order name: Physical Therapy Consult EDWA 09/25 17:56 Order name: Speech Therapy Consult EDWA 09/25 17:56 Order name: EKG Electrocardiogram EDWA 09/25 15:33 Order name: Accucheck; Complete Time: 15:51 ms3 09/25 15:33 Order name: Cardiac monitoring; Complete Time: 17:08 ms3 09/25 15:33 Order name: EKG - Nurse/Tech; Complete Time: 17:08 ms3 09/25 15:33 Order name: IV Saline Lock; Complete Time: 16:04 ms3 09/25 15:33 Order name: Labs collected and sent; Complete Time: 16:04 ms3 09/25 15:33 Order name: NPO; Complete Time: 16:04 ms3 09/25 15:33 Order name: O2 Per Protocol; Complete Time: 16:04 ms3 09/25 15:33 Order name: O2 Sat Monitoring; Complete Time: 16:04 ms3 09/25 15:33 Order name: Stroke Swallow Screen; Complete Time: 16:04 ms3 EC:11 Rate is 92 beats/min. Rhythm is regular. QRS [place] is Normal. [place] interval is normal. QRS sandy interval is normal. QT interval is normal. No Q waves. T waves are Normal. No ST changes noted. Clinical impression: Normal ECG. Interpreted by me. Reviewed by me. Administered Medications: 15:49 CANCELLED (Duplicate Order): TNK FOR STROKE - tenecteplase0.25 mg/kg IV at per sandy protocol once; MAX DOSE 25 mg, IVP over 5 seconds 16:00 Drug: NS 0.9% IV 1000 ml IV at 1 bolus Per protocol; 1000 mL bolus Route: IV; Rate: 1 db bolus; Site: right antecubital; 18:53 Follow up: IV Status: Completed infusion; IV Intake: 1000ml db 16:04 Drug: TNK FOR STROKE - Tenecteplase IV 0.25 mg/kg IV at per protocol once; MAX iw DOSE 25 mg, IVP over 5 seconds {Co-Signature: carlos (Nereida Landeros RN).} Route: IV; Rate: per protocol; Site: right antecubital; 16:20 Follow up: Response: No adverse reaction; IV Status: Completed infusion db 16:20 Drug: foLIC Acid IVPB 1 mg IVPB once Route: IVPB; Site: right antecubital; db 17:00 Follow up: Response: No adverse reaction; IV Status: Completed infusion db 17:14 Drug: Atorvastatin PO 20 mg PO once Route: PO; db 18:52 Follow up: Response: No adverse reaction db 17:45 Drug: NS 0.9% IV 1000 ml IV at 125 ml/hr continuous Route: IV; Rate: 125 ml/hr; Site: db right antecubital; 18:52 Follow up: IV Status: Infusion continued upon admission db 20:34 Drug: valACYclovir PO 1000 mg PO once Route: PO; bp 20:34 Drug: predniSONE PO 40 mg PO once Route: PO; bp Point of Care Testing: Blood Glucose: 15:47 Blood Glucose: 137 mg/dL; db Ranges: Critical Glucose Levels:Adult <50 mg/dl or >400 mg/dl <40 mg/dl or >180 mg/dl Disposition Summary: 09/25/23 16:37 Hospitalization Ordered Notes: Hospitalization Status: Inpatient Admission sandy Location: Intensive Care Unit sandy Condition: Fair sandy Problem: new sandy Symptoms: have improved sandy Bed/Room Type: Standard sandy Room Assignment: sandy Provider: Ad Gray(09/25/23 16:38) sandy Diagnosis - Aphasia sandy - Cerebral infarction, unspecified sandy - Essential (primary) hypertension sandy - Type 2 diabetes mellitus with hyperglycemia sandy Forms: - Medication Reconciliation Form sandy - SBAR form sandy - Leadership Thank You Letter sandy Critical care time excluding procedures: 16:30 Critical care time: Bedside Care: 35 minutes, Consultation: 15 minutes, Family sandy Intervention: 10 minutes. Total time: 60 minutes NIH Stroke Scale - NIH Stroke Score Date: 09/25/2023 Time: 16:11 Total Score = 4 10. Dysarthria (speech clarity - read or repeat words) - 1(Mild to Moderate) 11. Extinction and Inattention (visual/tactile/auditory/spatial/personal) - 0(No abnormality) 1a. Level of Consciousness (LOC) - 0(Alert) 1b. Level of Consciousness (LOC) (Month \T\ Age) - 0(Both) 1c. LOC Commands (Open \T\ Closes Eyes/Extractor Tender Raw Stock) - 0(Both) 2. Best Gaze (Lateral Gaze Paresis) - 0(Normal) 3. Visual Field Loss - 0(No visual loss) 4. Facial Palsy - 2(Partial paralysis) 5a. Left Arm: Motor (10-second hold) - 0(No drift) 5b. Right Arm: Motor (10-second hold) - 0(No drift) 6a. Left Leg: Motor (5-second hold - always test supine) - 0(No drift) 6b. Right Leg: Motor (5-second hold - always test supine) - 0(No drift) 7. Limb Ataxia (finger/nose \T\ heel/mota - test with eyes open) - 0(Absent) 8. Sensory Loss (pinprick arms/legs/face) - 0(Normal) 9. Best Language: Aphasia (description/naming/reading) - 1(Mild to moderate aphasia) Initials: sandy NIH Stroke Scale - NIH Stroke Score Date: 09/25/2023 Time: 16:15 Total Score = 3 10. Dysarthria (speech clarity - read or repeat words) - 0(Normal) 11. Extinction and Inattention (visual/tactile/auditory/spatial/personal) - 0(No abnormality) 1a. Level of Consciousness (LOC) - 0(Alert) 1b. Level of Consciousness (LOC) (Month \T\ Age) - 0(Both) 1c. LOC Commands (Open \T\ Closes Eyes/Extractor Tender Raw Stock) - 0(Both) 2. Best Gaze (Lateral Gaze Paresis) - 0(Normal) 3. Visual Field Loss - 0(No visual loss) 4. Facial Palsy - 1(Minor Paralysis) 5a. Left Arm: Motor (10-second hold) - 0(No drift) 5b. Right Arm: Motor (10-second hold) - 0(No drift) 6a. Left Leg: Motor (5-second hold - always test supine) - 0(No drift) 6b. Right Leg: Motor (5-second hold - always test supine) - 0(No drift) 7. Limb Ataxia (finger/nose \T\ heel/mota - test with eyes open) - 0(Absent) 8. Sensory Loss (pinprick arms/legs/face) - 1(Mild to moderate loss) 9. Best Language: Aphasia (description/naming/reading) - 1(Mild to moderate aphasia) Initials: db Signatures: Dispatcher [employer] EDWA Leo Cartagena MD MD cha Williams, Irene, RN RN iw Peltier, Brian, RN RN bp Sims, Marcus, DO DO ms3 Nereida Landeros RN RN db Nereida Landeros RN Corrections: (The following items were deleted from the chart) 15:49 15:43 TNK FOR STROKE - Tenecteplase IV 0.25 mg/kg IV at per protocol [facility] once; MAX DOSE 25 mg, IVP over 5 seconds ordered. [facility] 16:26 16:08 MR STROKE PROTOCOL+MRI.RAD.BRZ ordered. EDWA EDWA 16:38 16:37 Jeff Vasquez cha, cha
--- NOTE | 2023-09-25 16:37 | ER ---
Nurse's Notes [facility] Name: Angélica Thomas Age: 53 yrs Sex: Female : 1970 Arrival Date: 09/25/2023 Time: 15:27 Bed 5 Private MD: Diagnosis: Aphasia;Cerebral infarction, unspecified;Essential (primary) hypertension;Type 2 diabetes mellitus with hyperglycemia Presentation: 09/25 15:37 Chief complaint: Patient states: right sided facial numbness started at approx iw [id number] this morning , feels like her right arm is a little heavy, she had trouble getting words out. Coronavirus screen: At this time, the client does not indicate any symptoms associated with coronavirus-19. 15:37 Method Of Arrival: Wheelchair iw 15:37 Acuity: DOUGLAS 2 iw Historical: - Allergies: 15:39 Codeine; iw - PMHx: 15:39 diabetes mellitus; Hypertensive disorder; Hypothyroidism; iw - PSHx: 15:39 cyst removal from hand; Ligation of fallopian tube; iw - Immunization history:: Adult Immunizations unknown. - Family history:: not pertinent. - Social history:: Smoking status: Patient denies any tobacco usage or history of. Screenin:58 [facility] ED Fall Risk Assessment (Adult) History of falling in the last 3 months, kc6 including since admission No falls in past 3 months (0 pts) Confusion or Disorientation No (0 pts) Intoxicated or Sedated No (0 pts) Impaired Gait No (0 pts) Mobility Assist Device Used No (0 pt) Altered Elimination No (0 pt) Score/Fall Risk Level 0 - 2 = Low Risk. Abuse screen: Denies threats or abuse. Denies injuries from another. Nutritional screening: No deficits noted. Tuberculosis screening: No symptoms or risk factors identified. Assessment: 15:38 Reassessment: PT IN CT. Neuro: Level of Consciousness is awake, alert, obeys commands, db Oriented to person, place, time, situation. 15:38 Reassessment: CODE STROKE. iw 15:45 Russell Swallow Protocol Brief Cognitive Screen What is your name? Normal, Where are you db right now? Normal, What year is it? Normal. Oral Mechanism Examination Facial Symmetry: Normal, Motion: Normal, Lip Closure: Normal, Oral Mechanism Result: Normal. 3 oz Water Swallow Challenge: Pt able to drink all water without stopping, coughing, choking or throat clearing: Yes Result: PASS. 15:50 Reassessment: pt transported back to Ct for repeat Ct head. iw 16:00 Reassessment: Dr. Cartagena at bedside to confirm consent for TNK. iw 16:00 General: Appears in no apparent distress. comfortable, Behavior is cooperative, db anxious. Pain: Denies pain. Respiratory: Airway is patent Respiratory effort is even, unlabored, Respiratory pattern is regular, symmetrical. 16:04 Reassessment: TENECTEPLASE GIVEN SEE STROKE FLOW SHEET FOR VITALS AND MAR IN [employer]. db 16:33 Reassessment: PATIENT TO MRI. db 17:05 Reassessment: Patient appears in no apparent distress at this time. Patient and/or db family updated on plan of care and expected duration. Pain level reassessed. Patient is alert, oriented x 3, equal unlabored respirations, skin warm/dry/pink. PATIENT RETURNED TO ROOM FROM MRI. 18:33 Reassessment: Patient appears in no apparent distress at this time. Patient and/or db family updated on plan of care and expected duration. Pain level reassessed. Patient is alert, oriented x 3, equal unlabored respirations, skin warm/dry/pink. 18:42 Reassessment: Patient appears in no apparent distress at this time. Patient and/or db family updated on plan of care and expected duration. Pain level reassessed. Patient is alert, oriented x 3, equal unlabored respirations, skin warm/dry/pink. PATIENT USING BEDSIDE COMMODE Patient states feeling better. Patient states symptoms have improved. 20:00 Reassessment: No changes from previously documented assessment. Patient and/or family vc1 updated on plan of care and expected duration. Pain level reassessed. Patient is alert, oriented x 3, equal unlabored respirations, skin warm/dry/pink. 21:00 Reassessment: No changes from previously documented assessment. Patient and/or family vc1 updated on plan of care and expected duration. Pain level reassessed. Patient is alert, oriented x 3, equal unlabored respirations, skin warm/dry/pink. 22:00 Reassessment: No changes from previously documented assessment. Patient and/or family vc1 updated on plan of care and expected duration. Pain level reassessed. Patient is alert, oriented x 3, equal unlabored respirations, skin warm/dry/pink. 23:00 Reassessment: No changes from previously documented assessment. Patient and/or family vc1 updated on plan of care and expected duration. Pain level reassessed. Patient is alert, oriented x 3, equal unlabored respirations, skin warm/dry/pink. 09/26 00:00 Reassessment: No changes from previously documented assessment. Patient and/or family vc1 updated on plan of care and expected duration. Pain level reassessed. Patient is alert, oriented x 3, equal unlabored respirations, skin warm/dry/pink. Vital Signs: 09/25 16:00 BP 178 / 107; iw 16:02 BP 159 / 93; Pulse 88; Resp 16; Temp 97.9(O); Pulse Ox 100% on R/A; Weight 68.49 kg; db 16:05 BP 179 / 94; Pulse 88; Resp 16; Pulse Ox 100% on R/A; db 16:06 BP 167 / 84; iw 16:18 BP 146 / 101; Pulse 86; Resp 18; Pulse Ox 100% on R/A; db 17:05 BP 167 / 100; Pulse 98; Resp 18; Pulse Ox 100% on R/A; db 17:15 BP 156 / 87; Pulse 87; Resp 18; Pulse Ox 100% on R/A; db 17:30 BP 115 / 102; Pulse 85; db 17:45 BP 137 / 94; Pulse 78; Resp 16; Pulse Ox 100% on R/A; db 18:00 BP 155 / 105; Pulse 78; Resp 16; Pulse Ox 99% on R/A; db 18:30 BP 163 / 92; Pulse 77; Resp 18; Pulse Ox 97% on R/A; db 19:00 BP 138 / 87; Pulse 81; Resp 18; Pulse Ox 98% ; vc1 20:00 BP 127 / 93; Pulse 73; Resp 18; Pulse Ox 98% ; vc1 21:00 BP 137 / 82; Pulse 78; Resp 19; Pulse Ox 98% ; vc1 22:00 BP 126 / 81; Pulse 76; Resp 13; Pulse Ox 97% ; vc1 23:00 BP 130 / 76; Pulse 75; Resp 14; Pulse Ox 96% ; vc1 23:45 BP 125 / 77; Pulse 74; Resp 12; Pulse Ox 97% ; vc1 Vitals: 18:30 Cardiac Rhythm Assessment Regular Sinus rhythm. db NIH Stroke Scale Scores: 16:11 NIHSS Score: 4 sandy 16:15 NIHSS Score: 3 db ED Course: 15:29 Patient arrived in ED. im 15:32 Leo Cartagena MD is Attending Physician. sandy 15:39 Triage completed. iw 15:40 Nereida Landeros, RN is Primary Nurse. db 15:44 CT Stroke Brain w/o Contrast In Process Unspecified. EDMS 15:58 Inserted saline lock: 20 gauge in right antecubital area, using aseptic technique. kc6 Blood collected. Patient maintains SpO2 saturation greater than 95% on room air. 15:58 Patient has correct armband on for positive identification. Bed in low position. Call kc6 light in reach. Side rails up X2. Adult w/ patient. Client placed on continuous cardiac and pulse oximetry monitoring. NIBP monitoring applied. monitor worker on. 16:05 Provided Education on: TNK administration. kc6 16:24 Stroke CXR 1 View In Process Unspecified. EDMS 16:33 Jeff Vasquez MD is Hospitalizing Provider. sandy 16:37 Ad Gray is Hospitalizing Provider. sandy 17:00 Brain Wo Cont In Process Unspecified. EDMS 17:02 CT Head Angio In Process Unspecified. EDMS 17:02 CT Neck Angio In Process Unspecified. EDMS 19:20 Harrison Mcclure, RN is Primary Nurse. bp Administered Medications: 15:49 CANCELLED (Duplicate Order): TNK FOR STROKE - tenecteplase0.25 mg/kg IV at per sandy protocol once; MAX DOSE 25 mg, IVP over 5 seconds 16:00 Drug: NS 0.9% IV 1000 ml IV at 1 bolus Per protocol; 1000 mL bolus Route: IV; Rate: 1 db bolus; Site: right antecubital; 18:53 Follow up: IV Status: Completed infusion; IV Intake: 1000ml db 16:04 Drug: TNK FOR STROKE - Tenecteplase IV 0.25 mg/kg IV at per protocol once; MAX iw DOSE 25 mg, IVP over 5 seconds {Co-Signature: db (Nereida Landeros RN).} Route: IV; Rate: per protocol; Site: right antecubital; 16:20 Follow up: Response: No adverse reaction; IV Status: Completed infusion db 16:20 Drug: foLIC Acid IVPB 1 mg IVPB once Route: IVPB; Site: right antecubital; db 17:00 Follow up: Response: No adverse reaction; IV Status: Completed infusion db 17:14 Drug: Atorvastatin PO 20 mg PO once Route: PO; db 18:52 Follow up: Response: No adverse reaction db 17:45 Drug: NS 0.9% IV 1000 ml IV at 125 ml/hr continuous Route: IV; Rate: 125 ml/hr; Site: db right antecubital; 18:52 Follow up: IV Status: Infusion continued upon admission db 20:34 Drug: valACYclovir PO 1000 mg PO once Route: PO; bp 20:34 Drug: predniSONE PO 40 mg PO once Route: PO; bp Medication: 16:00 VIS not applicable for this client. db Point of Care Testing: Blood Glucose: 15:47 Blood Glucose: 137 mg/dL; db Ranges: Intake: 18:53 IV: 1000ml; Total: 1000ml. db Output: 18:36 Urine: 1250ml (Voided); Total: 1250ml. db Outcome: 16:37 Decision to Hospitalize by Provider. [facility] 09/26 01:37 Patient left the ED. bp NIH Stroke Scale - NIH Stroke Score Date: 09/25/2023 Time: 16:11 Total Score = 4 10. Dysarthria (speech clarity - read or repeat words) - 1(Mild to Moderate) 11. Extinction and Inattention (visual/tactile/auditory/spatial/personal) - 0(No abnormality) 1a. Level of Consciousness (LOC) - 0(Alert) 1b. Level of Consciousness (LOC) (Month \T\ Age) - 0(Both) 1c. LOC Commands (Open \T\ Closes Eyes/Business Intelligence Analyst) - 0(Both) 2. Best Gaze (Lateral Gaze Paresis) - 0(Normal) 3. Visual Field Loss - 0(No visual loss) 4. Facial Palsy - 2(Partial paralysis) 5a. Left Arm: Motor (10-second hold) - 0(No drift) 5b. Right Arm: Motor (10-second hold) - 0(No drift) 6a. Left Leg: Motor (5-second hold - always test supine) - 0(No drift) 6b. Right Leg: Motor (5-second hold - always test supine) - 0(No drift) 7. Limb Ataxia (finger/nose \T\ heel/mota - test with eyes open) - 0(Absent) 8. Sensory Loss (pinprick arms/legs/face) - 0(Normal) 9. Best Language: Aphasia (description/naming/reading) - 1(Mild to moderate aphasia) Initials: sandy NIH Stroke Scale - NIH Stroke Score Date: 09/25/2023 Time: 16:15 Total Score = 3 10. Dysarthria (speech clarity - read or repeat words) - 0(Normal) 11. Extinction and Inattention (visual/tactile/auditory/spatial/personal) - 0(No abnormality) 1a. Level of Consciousness (LOC) - 0(Alert) 1b. Level of Consciousness (LOC) (Month \T\ Age) - 0(Both) 1c. LOC Commands (Open \T\ Closes Eyes/Business Intelligence Analyst) - 0(Both) 2. Best Gaze (Lateral Gaze Paresis) - 0(Normal) 3. Visual Field Loss - 0(No visual loss) 4. Facial Palsy - 1(Minor Paralysis) 5a. Left Arm: Motor (10-second hold) - 0(No drift) 5b. Right Arm: Motor (10-second hold) - 0(No drift) 6a. Left Leg: Motor (5-second hold - always test supine) - 0(No drift) 6b. Right Leg: Motor (5-second hold - always test supine) - 0(No drift) 7. Limb Ataxia (finger/nose \T\ heel/mota - test with eyes open) - 0(Absent) 8. Sensory Loss (pinprick arms/legs/face) - 1(Mild to moderate loss) 9. Best Language: Aphasia (description/naming/reading) - 1(Mild to moderate aphasia) Initials: db Signatures: Dispatcher [employer] Leo Mitchell MD MD cha Williams, Irene, RN RN iw Harrison Mcclure RN Devi Espinal RN RN vc1 Nora Delarosa RN RN kc6 Nereida Landeros, CLOVER GALO db Naya Giang Danielle RN db Corrections: (The following items were deleted from the chart) 09/25 16:08 15:55 Reassessment: CODE STROKE db iw 16:21 15:45 NIHSS Score: 3 db db
[2023-09-25 16:45] LABS: Protime INR 1.09
--- NOTE | 2023-09-25 17:12 | RAD REPORT ---
EXAM DESCRIPTION: MRI - Brain Wo Cont - 09/25/2023 4:58 pm CLINICAL HISTORY: APHASIA Headache, drowsiness, CVA symptomology COMPARISON: Ct Stroke Brain Wo Cont dated 09/25/2023; Facial Bones W Con Mpr dated 05/22/2021 TECHNIQUE: Multi-sequence, multiplanar MR imaging of the brain was performed without contrast. FINDINGS: No intracranial hemorrhage, hydrocephalus or extra-axial fluid collections. No edema or sh ift of midline structures. No findings to suspect brain mass. DWI is negative for acute CVA. Midline structures are normally formed. Mastoid air cells and paranasal sinuses are clear. IMPRESSION: Negative for acute CVA or other acute intracranial process.
--- NOTE | 2023-09-25 17:14 | P.HP ---
Certification for Inpatient Patient admitted to: Observation With expected LOS: <2 Midnights Patient will require the following post-hospital care: None Practitioner: I am a practitioner with admitting privileges, knowledge of patient current condition, hospital course, and medical plan of care. Services: Services provided to patient in accordance with Admission requirements found in Title 42 Section 412.3 of the Code of Federal Regulations Patient History Date of Service: 09/25/23 Reason for admission: acute CVA/TIA History of Present Illness: Angélica Thomas is a 53-year-old female with past medical history of diabetes, hypertension disorder, hypothyroidism who presents today complaining of right- sided facial numbness with heaviness to the right arm and trouble finding the right words or using sentences, started approximately 10 3011 this morning. On examination she stated the numbness was returning to her right face but her speech has resolved considerably. She reports never losing the ability to stand, denies dizziness, syncope, loss of consciousness, headache, halo. Of note, Angélica reports a history of dysphagia and right-sided Ramos's palsy. She is unable to swallow small pills, food, and sips of liquid. Initial vital BP 159 / 93; Pulse 88; Resp 16; Temp 97.9(O); Pulse Ox 100% on R/A NIHSS score [address] brain reports " No intracranial hemorrhage, hydrocephalus or extra-axial fluid collection.No areas of brain edema or evidence of midline shift. The paranasal sinuses and mastoids are clear. The calvarium is intact." Chest x-ray reports " The lungs are grossly clear. The heart is normal in size. No displaced fractures" Chhaya will be admitted to hospitalist service for further evaluation and treatment, TNK given in the ED, will admit to ICU. Allergies No Known Allergies Allergy (Unverified 01/24/16 08:44) Review of Systems General: Unremarkable Eyes: Unremarkable ENT: Unremarkable Respiratory: Unremarkable Cardiovascular: Unremarkable Gastrointestinal: Unremarkable Genitourinary: Unremarkable Musculoskeletal: Other (right arm heaviness) Integumentary: Unremarkable Neurological: Weakness, Numbness (right sided facial), Change in Speech (aphasia) Physical Examination - Physical Exam General: Alert, In no apparent distress, Oriented x3 HEENT: Atraumatic, Normocephalic, PERRLA Neck: Supple, 2+ carotid pulse no bruit, JVD not distended Respiratory: Clear to auscultation bilaterally, Normal air movement Cardiovascular: No edema, Normal pulses, Regular rate/rhythm, Normal S1 S2 Capillary refill: <2 Seconds Gastrointestinal: Normal bowel sounds, Soft and benign Musculoskeletal: No clubbing, No swelling, No contractures Integumentary: No rashes, No breakdown, No significant lesion Neurological: Normal speech, Normal strength at 5/5 x4 extr, Normal tone - Studies Laboratory Data (last 24 hrs) 09/25/23 09/25/23 09/25/23 15:58 15:58 15:58 WBC 5.20 Hgb 15.2 H Hct 43.7 Plt Count 270 PT 12.0 INR 1.09 APTT 32.8 Sodium 139 Potassium 3.5 BUN 11 Creatinine 0.86 Glucose 150 H Assessment and Plan - Plan Assessment and plan Acute CVA versus TIA History of dysphagia History of Ramos's palsy NIHSS 3 TNK given in the ED Admit to ICU for 24 hours Continuous telemetry Consult Dr. Stanford Brain MRI, head and neck CTA pending Neurochecks every 4 Speech, PT OT consulted Aspirin, statin, folic acid Essential hypertension Allow permissive hypertension tonight Restart home antihypertensive when appropriate DM 2 NIDDM Accu-Chek with SSI Hypothyroidism Restart home medication DVT PPx- Lovenox when appropriate, TNK given at 1603 09/25 Full code LOS 2 to 3 days Discharge Plan: Home Plan to discharge in: 48 Hours - Advance Directives Does patient have a Living Will: No Does patient have a Durable POA for Healthcare: No Time Spent Managing Pts Care (In Minutes): 55
--- NOTE | 2023-09-25 17:15 | RAD REPORT ---
EXAM DESCRIPTION: CT - Head angio - 09/25/2023 5:00 pm CLINICAL HISTORY: Slurred speech;Weakness Headache, drowsiness, CVA symptomology COMPARISON: Ct Stroke Brain Wo Cont dated 09/25/2023; Facial Bones W Con Mpr dated 05/22/2021; Brai n Wo Cont dated 09/25/2023; Neck Angio dated 09/25/2023 TECHNIQUE: CT angiography of the head was performed with MIPs. All CT scans are performed using dose optimization technique as appropriate and may include automated exposure control or mA/KV adjustment according to patient size. FINDINGS: No evidence of large vessel occlusion. No evidence of aneurysm is detected. No flow-limiti ng stenosis or vascular malformation identified. Antegrade flow is seen in the vertebral arteries. The vertebral arteries are codominant. The visualized dural venous sinuses are patent. IMPRESSION: No significant flow abnormality is detected.
--- NOTE | 2023-09-25 17:25 | RAD REPORT ---
EXAM DESCRIPTION: CT - Neck Angio - 09/25/2023 5:00 pm CLINICAL HISTORY: stroke Headache, drowsiness, CVA symptomology COMPARISON: Brain Wo Cont dated 09/25/2023; Ct Stroke Brain Wo Cont dated 09/25/2023; Facial Bones W Con Mpr dated 05/22/2021 TECHNIQUE: CT angiography of the neck vessels was performed with MIPs. All CT scans are performed using dose optimization technique as appropriate and may include automated exposure control or mA/KV adjustment according to patient size. FINDINGS: A left aortic arch is identified with normal three vessel configuration of the great vesse ls. Moderate atherosclerotic plaque and narrowing of the origin the left subclavian artery noted. No significant flow abnormality is seen of the common carotid bilaterally. Moderate stenosis is present caused by hard and soft plaque left carotid bulb. Based on NASCET criter ia, stenosis estimated at 50-70%. No significant right-sided carotid stenosis. Normal flow is seen within both vertebral arteries. IMPRESSION: Moderate stenosis is present estimated at between 50-70% left carotid bulb as detailed. NASCET criteria used. Mild 0-49% stenosis Moderate 50-69% stenosis Severe 70-99% stenosis
[2023-09-25] MEDS ORDERED: ATORVASTATIN 20 MG TAB ONE (17:28)
[2023-09-25 17:29] LABS: Specific Gravity 1.005 (1.005-1.030); Urine Bacteria <20 /HPF (<20); Urine Bilirubin NEGATIVE (Negative); Urine Blood Negative (Negative); Urine Clarity Clear (Clear); Urine Color Yellow (Yellow); Urine Glucose NEGATIVE (Negative); Urine Protein NEGATIVE (Negative); Urine RBC <5 /HPF (None Seen); Urine Urobilinogen Normal (Normal)
[2023-09-25] MEDS: NA CHLORIDE 0.9% 1,000 ML IV SCH (18:00)
[2023-09-25] MEDS ORDERED: predniSONE 20 MG TAB ONE (20:11)
[2023-09-25] MEDS ORDERED: VALACYCLOVIR 500 MG TAB ONE (20:27)
[2023-09-25] MEDS: INSULIN REGULAR (HUMAN) 100 UNIT/ML SQ SCH (21:00)
[2023-09-25] MEDS ORDERED: ATORVASTATIN 40 MG TAB PO SCH (21:00)
[2023-09-26 00:44] LABS: RPR (Rapid Plasma Reagin) NON-REACT (NON-REACT)
[2023-09-26 05:57] LABS: Absolute Lymphocytes (CBC) 0.9 K/uL (0.7-4.9); Hematocrit 39.2 % (36.0-45.0); Lymphocytes % 18.9 % (15.3-44.8); MCV 88.6 fL (80-100); MPV 8.5 fL (7.6-11.3); Platelets 269 thou/uL (152-406); RBC Red Blood Cell Count 4.42 M/uL (3.86-4.86)
[2023-09-26 06:18] LABS: Albumin 3.4 g/dL (3.4-5.0); Bilirubin Direct 0.1 mg/dL (0-0.2); Bilirubin Indirect, Calculated 0.3 mg/dL (0.2-0.8); Bilirubin Total 0.4 mg/dL (0.2-1.0); C-Reactive Protein 3.27 mg/L (<3.00); Magnesium 2.5 mg/dL (1.6-2.4); Potassium 3.9 mEq/L (3.5-5.1); Protein, Total 7.5 g/dL (6.4-8.2); Thyroid Stimulating Hormone 4.81 uIU/mL (0.358-3.740)
[2023-09-26] MEDS: INSULIN REGULAR (HUMAN) 100 UNIT/ML SQ SCH ×3 (07:30→16:30)
[2023-09-26] MEDS: NA CHLORIDE 0.9% 1,000 ML IV SCH (08:25)
[2023-09-26] MEDS ORDERED: ASPIRIN EC 81 MG TAB PO ONE (08:31)
[2023-09-26] MEDS ORDERED: FOLIC ACID 1 MG TABLET ONE (08:31)
[2023-09-26] MEDS ORDERED: FOLIC ACID 1 MG TABLET PO SCH (09:00)
[2023-09-26] MEDS ORDERED: ASPIRIN EC 81 MG TAB PO SCH (09:00)
[2023-09-26 16:21] VITALS: O2SAT 99
[2023-09-26 16:23] VITALS: TEMP 97
[2023-09-26 17:50] VITALS: BMI 29.4
[2023-09-26] MEDS ORDERED: ENOXAPARIN 40 MG/0.4 ML SQ SCH (18:00)
--- NOTE | 2023-09-26 18:11 | RAD REPORT ---
EXAM DESCRIPTION: CT - Head Brain Wo Cont - 09/26/2023 4:39 pm CLINICAL HISTORY: s/p TNK COMPARISON: Head angio dated 09/25/2023; Ct Stroke Brain Wo Cont dated 09/25/2023 TECHNIQUE: Noncontrast head CT images were obtained without IV contrast. Multiplanar reformats were generated and reviewed. All CT scans are performed using dose optimization technique as appropriate and may include automated exposure control or mA/KV adjustment according to patient size. FINDINGS: No intracranial hemorrhage, mass, or edema. Midline structures are unremarkable. Normal ventricular caliber for age. Webster-white matter differentiation is preserved, without evidence of acute infarct. No abnormal extra- axial fluid collections. Mastoid air cells and visualized portions of the paranasal sinuses are clear. No acute bony findings. IMPRESSION: No evidence of an acute intracranial process.
--- NOTE | 2023-09-26 18:14 | P.DS ---
Admission Date: 09/25/23 Discharge Date: 09/26/23 Disposition: ROUTINE DISCHARGE Discharge Condition: FAIR Reason for Admission: acute CVA/TIA - Problems (1) Weakness on right side of face Current Visit: Yes Status: Acute (2) Ramos's palsy Current Visit: Yes Status: Acute (3) Essential hypertension Current Visit: Yes Status: Acute Brief History of Present Illness: Angélica Thomas is a 53-year-old female with past medical history of diabetes, hypertension disorder, hypothyroidism who presented to the ER complaining of right-sided facial numbness with heaviness to the right arm and trouble finding the right words or using sentences. On examination she stated the numbness was returning to her right face but her speech has resolved considerably. She reports never losing the ability to stand, denies dizziness, syncope, loss of consciousness, headache, halo. Of note, Angélica reports a history of dysphagia and right-sided Ramos's palsy. Initial vital BP 159 / 93; Pulse 88; Resp 16; Temp 97.9(O); Pulse Ox 100% on R/A NIHSS score [address] brain reports " No intracranial hemorrhage, hydrocephalus or extra-axial fluid collection.No areas of brain edema or evidence of midline shift. The paranasal sinuses and mastoids are clear. The calvarium is intact." Chest x-ray reports " The lungs are grossly clear. The heart is normal in size. No displaced fractures" TNKase given in the ED. Patient admitted to the ICU for further management. Hospital Course: Patient monitored in the ICU. She reported her right hand heaviness has resolved. Right facial droop persisted. MRI of the brain did not show any acute stroke or bleed. Case discussed with neurology Dr. Stanford. 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 Patient is ambulatory and tolerated diet. No dysphagia. Speech is a bit slurred. She is discharged with oral prednisone and valacyclovir for Ramos's palsy. She is informed to follow-up with Dr. Stanford as outpatient. Vital Signs/Physical Exam: Temp Pulse Resp BP Pulse Ox 97 F 75 13 148/88 H 99 09/26/23 16:00 09/26/23 16:00 09/26/23 16:00 09/26/23 16:00 09/26/23 16:00 General: Alert, In no apparent distress, Oriented x3 HEENT: Mucous membr. moist/pink, EOMI, Sclerae nonicteric Neck: Supple, JVD not distended Respiratory: Clear to auscultation bilaterally, Normal air movement Cardiovascular: No edema, Regular rate/rhythm, Normal S1 S2, No murmurs Gastrointestinal: Normal bowel sounds, Soft and benign, Non-distended, No tend erness Musculoskeletal: No swelling, No tenderness Integumentary: No rashes, No cyanosis Neurological: Normal strength at 5/5 x4 extr, Other (Right facial weakness) Laboratory Data at Discharge: WBC 4.60 thou/uL (4.3-10.9) 09/26/23 05:30 Hgb 13.5 g/dL (12.0-15.0) D 09/26/23 05:30 Hct 39.2 % (36.0-45.0) 09/26/23 05:30 Plt Count 269 thou/uL (152-406) 09/26/23 05:30 PT 12.0 SECONDS (9.5-12.5) 09/25/23 15:58 INR 1.09 09/25/23 15:58 APTT 32.8 SECONDS (24.3-36.9) 09/25/23 15:58 Sodium 139 mEq/L (136-145) 09/26/23 05:30 Potassium 3.9 mEq/L (3.5-5.1) 09/26/23 05:30 BUN 8 mg/dL (7-18) 09/26/23 05:30 Creatinine 0.71 mg/dL (0.55-1.02) 09/26/23 05:30 Glucose 177 mg/dL (74-106) H 09/26/23 05:30 Phosphorus 3.0 mg/dL (2.5-4.9) 09/26/23 05:30 Magnesium 2.5 mg/dL (1.6-2.4) H 09/26/23 05:30 Total Bilirubin 0.4 mg/dL (0.2-1.0) 09/26/23 05:30 AST 16 U/L (15-37) 09/26/23 05:30 ALT 23 U/L (13-56) 11/29/23 05:30 Alkaline Phosphatase 64 U/L (45-117) 09/26/23 05:30 Triglycerides 78 mg/dL (<150) 09/26/23 05:30 Cholesterol 156 mg/dL (<200) 09/26/23 05:30 HDL Cholesterol 37 mg/dL (40-60) L 09/26/23 05:30 Cholesterol/HDL Ratio 4.22 09/26/23 05:30 Home Medications: Amlodipine [Norvasc*] 10 mg PO DAILY 09/26/23 Levothyroxine Sodium [Synthroid] 112 mcg PO DAILY 09/26/23 Lisinopril [Zestril] 20 mg PO DAILY 09/26/23 Semaglutide [Ozempic] 1 mg SQ Q7D 09/26/23 Valacyclovir HCl [Valacyclovir] 1,000 mg PO TID #21 tab 09/26/23 predniSONE [Deltasone] 60 mg PO DAILY #21 tab 09/26/23 New Medications: predniSONE [Deltasone] 60 mg PO DAILY #21 tab Valacyclovir HCl [Valacyclovir] 1,000 mg PO TID #21 tab Diet: ADA Activity: Ad oliver Followup: Ruddy Stanford MD [ASSOCIATE-ACTIVE - CAN ADMIT] - (Please call office tomorrow for an appointment.) Mike Elder DO [Primary Care Provider] - 1-2 Weeks Time spent managing pt's care (in minutes): 28
[2023-09-26 18:20] VITALS: BP 134/93
[2023-09-27 00:22] LABS: T4,Total 9.2 ug/dL (4.8-13.9)
--- NOTE | 2023-09-27 06:31 | ECHO ---
HEIGHT: 5 ft 0 in WEIGHT: 150 lb 12.8 oz DATE OF STUDY: 09/26/[address]: Chuyita Perdue NP 2-DIMENSIONAL: YES M.MODE: YES DOPPLER: YES COLOR FLOW: YES TDS: PORTABLE: YES DEFINITY: BUBBLE STUDY: DIAGNOSIS: STROKE CARDIAC HISTORY: CATHERIZATION: SURGERY: PROSTHETIC VALVE: PACEMAKER: MEASUREMENTS (cm) DIASTOLIC (NORMALS) SYSTOLIC (NORMALS) IVSd 0.9 (0.6-1.2) LA Diam 3.0 (1.9-4.0) LVEF 74% LVIDd 3.7 (3.5-5.7) LVIDs 2.1 (2.0-3.5) %FS 43% LVPWd 1.0 (0.6-1.2) Ao Diam 2.8 (2.0-3.7) 2 DIMENSIONAL ASSESSMENT: RIGHT ATRIUM: NORMAL LEFT ATRIUM: NORMAL RIGHT VENTRICLE: NORMAL LEFT VENTRICLE: NORMAL TRICUSPID VALVE: TRACE TRICUSPID REGURGITAITON MITRAL VALVE: TRACE MITRAL REGURGITATION PULMONIC VALVE: NORMAL AORTIC VALVE: NORMAL PERICARDIAL EFFUSION: NONE AORTIC ROOT: NORMAL LEFT VENTRICULAR WALL MOTION: NORMAL DOPPLER/COLOR FLOW: SEE BELOW COMMENTS: 1. NORMAL LEFT VENTRICULAR EJECTION FRACTION 60-65% WITH NORMAL WALL MOTION 2. GRADE I DIASTOLIC DYSFUNCTION 3. TRACE MITRAL REGURGITATION/ TRICUSPID REGURGITATION TECHNOLOGIST: CHRISTIANO MONDRAGON
--- NOTE | 2023-09-27 15:20 | EKG ---
Test Date: 2023-09-25 Test Time: 16:08:33 Role Player: CUCA MEASUREMENT RESULTS: Intervals: Rate: 92 WY: 152 QRSD: 80 QT: 366 QTc: 452 [place]: P: 60 WY: 152 QRS: 68 T: 44 INTERPRETIVE STATEMENTS: Normal sinus rhythm Normal ECG Compared to ECG 11/10/2022 05:03:58 No significant changes Electronically Signed On 09-27-23 15:13:21 [employer]IL EXPERT by Wiliam Cox
[2023-09-29 09:02] LABS: Albumin, (SPE) 4.2 g/dL (3.8-4.8); Alpha-1-Globulins 0.3 g/dL (0.2-0.3); Alpha-2-Globulins 1.1 g/dL (0.5-0.9); Gamma Globulins 1.5 g/dL (0.8-1.7); INTERPRETATION REPORT
[2023-10-01 12:17] LABS: Protein C Antigen 101 % normal (70-140)
== END 2023-09-26 19:00 | disposition home or self-care (01) ==
LOC: ER 15:27 → ERHOLD 18:05 → 3RD-ICU 09-26 01:28
PROVIDERS: ADMIT Internal Medicine; ATTEND Internal Medicine
DX: G51.0 Bell's palsy (principal); R47.81 Slurred speech; E11.9 Type 2 diabetes mellitus without complications; E03.9 Hypothyroidism, unspecified; I10 Essential (primary) hypertension
CPT/HCPCS: 96365; 96367; 96361; 92977; 93005; 93306; 85025 ×2; 81001; 80048 ×2; 36415; 83735; 82550; 84100; 85610; 80061; 82947 ×4; 80076; 86592; 85730; 84436; 84443; 84484 ×2; 84439; 82607; 81241; 81240; 82306; 83090; 85300; 85302; 85305; 85306; 86021 ×2; 86147 ×2; 86140; 84165; 70450 ×2; 70496; 70498; 71045; 70551; 92610; 97110; 97116; 97161; 99291; Q9967; J7512; J3101; J7030 ×2; G0378 ×4; J1650